=== PATIENT | female | born 1965 | race Caucasian/White ===

== ENCOUNTER 2022-07-19 12:37 | Emergency (ER) | payer BC, SELFPAY ==
[2022-07-19 12:39] VITALS: BP 106/74; PULSE 76; RESP 18; TEMP 37; O2SAT 96; BMI 31.6
--- NOTE | 2022-07-19 13:19 | RAD_ITS ---
EXAM: XR CHEST, 2 VIEWS CLINICAL INDICATION: rib pain TECHNIQUE: Frontal and lateral views of the chest. This report was created using [employer] report generation technology. COMPARISON: None. FINDINGS: LUNGS AND PLEURAL SPACES: Minimal interstitial fibrotic changes. No consolidation or edema. No pneumothorax. No effusion. Lungs are not hyperinflated. HEART: Upper normal heart size, with normal pulmonary vasculature. MEDIASTINUM: Mild elongation of the thoracic aorta. No mediastinal widening or hilar enlargement. BONES/JOINTS: No rib fracture or other acute fracture identified on the submitted views. SOFT TISSUES: Cholecystectomy clips. RAD/Chest PA and Lateral IMPRESSION: No radiographic evidence of acute cardiopulmonary disease. Electronically Signed: Arthur Wu MD at 6:50 EST ,
--- NOTE | 2022-07-19 14:56 | ED.VIS.FALL ---
HPI HPI - Fall History of Present Illness Chief Complaint: Fall Informant: patient Narrative Narrative: 56-year-old female states on Tuesday she was walking and fell. She landed initially bilateral hands on the concrete and then her chest. She states that it knocked the wind out of her. She states that she did not have pain in her chest right after the fall but in her hands. Was into the next day that she developed pain in the chest describes as midsternal worse with breathing and movement and touch. She notes some bruising to the legs and bilateral breast. No deformities. No coughing up blood. PFSH PFSH Allergy/AdvReac Type Severity Reaction Status Date / Time codeine AdvReac Nausea Verified 07/19/22 12:39 Sulfa (Sulfonamide AdvReac Nausea Verified 07/19/22 12:39 Antibiotics) sulfamethoxazole AdvReac Nausea Verified 07/19/22 12:39 [From ] trimethoprim [From ] AdvReac Nausea Verified 07/19/22 12:39 Social History (Updated 07/19/22 @ 14:[address] Vance Moise, ) current gender identity: female Smoking Status: Never smoker ROS ROS ED Constitutional Constitutional ED: Denies chills or weight loss Eyes Eyes: Denies change in vision or diplopia ENT ENT ED: Denies ear pain, rhinorrhea or sore throat Cardiovascular Cardiovascular: Reports chest pain; Denies orthopnea, palpitations or racing heartbeat Respiratory/Chest Respiratory/Chest: Denies cough, dyspnea or orthopnea Gastrointestinal Gastrointestinal: Denies abdominal pain, diarrhea, nausea or vomiting Genitourinary Genitourinary ED: Denies dysuria, hematuria or urinary frequency Musculoskeletal Musculoskeletal: Denies arthralgias or myalgias Integumentary Reports other Details: see HPI ; Denies abscess or rash Neurologic Neurologic: Denies headache(s) or weakness Psychiatric Psychiatric: Denies anxiety, depression, suicidal ideation or suicidal thoughts Endocrine Endocrinology: Denies polydipsia, polyphagia or polyuria Allergic/Immunologic Allergic/Immunologic ED: Denies mouth swelling, tongue swelling or urticaria EXAM Physical Exam Const Vital Signs: 07/19/22 12:39 Temperature 98.6 F Temperature Source Temporal Pulse Rate 76 Respiratory Rate 18 Blood Pressure 106/74 Blood Pressure Mean 84 Pulse Ox 96 Oxygen Delivery Method Room Air Positive well nourished and well developed General Appearance ED: well developed HEENT Reports normocephalic, head/scalp atraumatic and moist mucous membranes Eyes PERRL and EOMs intact bilaterally Neck no lymphadenopathy, supple and no JVD Chest Wall Chest Narrative: Patient notes pain upon palpation with light touch to the anterior chest wall directly on the left side. Resp normal respiratory effort, no retractions and clear to auscultation bilaterally Cardio regular rate, regular rhythm and no murmurs GI normal to inspection, nondistended, normoactive bowel sounds and non-tender Palpation: soft Back/Spine no CVA tenderness and normal ROM Extremity Extremity Narrative: Contusion noted bilateral palms General Extremety ED: Negative for edema General Extremity: Negative for edema Neuro oriented x3 and CN's II-XII intact bilaterally Sensorium / Orientation: alert Motor Exam: strength 5/5 throughout Psych mental status grossly normal Mood & Affect: Negative for depressed or tearful Skin no rashes or lesions noted and no wounds MDM MDM MDM Narrative Medical decision making narrative: Chest x-ray is obtained through nursing protocol. This is negative for pneumothorax or hemothorax. Clinically the patient did not have pain immediately after the fall but rather slowly developed at think it is unlikely to be anything broken. This is most likely contusion. Would recommend conservative treatment at home. Discharge Plan Triage Chief Complaint: Fall Other Complaint: Chest Other ED Provider: Vance Moise Dx/Rx/DC Orders Primary Care Provider: Gil Anthony Referrals: Gil Anthony MD [Primary Care Provider] -
[2022-07-19] MEDS: Ibuprofen 400 MG Tablet 800 MG PO (15:07)
[2022-07-19 15:31] VITALS: BP 110/76; PULSE 70; RESP 16
== END 2022-07-19 15:31 | disposition home or self-care (01) ==
PROVIDERS: Emergency Provider Emergency Medicine; PCP Family Medicine; Visit Provider Emergency Medicine
DX: S20.01XA Contusion of right breast, initial encounter (principal); S20.02XA Contusion of left breast, initial encounter; W19.XXXA Unspecified fall, initial encounter
CPT/HCPCS: 71046; 99283